=== PATIENT | male | born 1985 | race Caucasian/White ===

== ENCOUNTER 2017-08-31 15:10 | Emergency (ER) | payer OTHER ==
[~2017-08-31] VITALS: Ht 170.2 cm; Wt 70.0 kg
--- NOTE | 2017-08-31 15:24 | PD ---
HPI . Leg injury Chief Complaint: Extremity injury Time Seen by Provider: 15:16 Travel History International Travel<30 days: No Contact w/Intl Traveler<30days: No History of Present Illness HPI Patient presents with a chief complaint of a laceration to his right thigh. He was surfing and was apparently inadvertently cut by the fin of the surfboard. The injury occurred just prior to arrival. He does not recall the date of his last tetanus shot. He states that the bleeding did not appear to be arterial. He rates his pain at 5/10. The wound has been previously addressed. [facility] Social History Tobacco Use: No Allergies-Medications (Allergen,Severity, Reaction): Uncoded Allergies: penicillin (Allergy, Unknown, 08/31/17) Review of Systems Except as stated in HPI: all other systems reviewed are Neg Physical Exam Narrative GENERAL: Awake and alert and in no acute distress. SKIN: Warm and dry. Dressing is in place on the right thigh. His right lower leg is blood stained. HEAD: Normocephalic/atraumatic. EYES: Pupils are equal. Extraocular movements are intact. NECK: Normal range of motion. CARDIOVASCULAR: Regular rate and rhythm. RESPIRATORY: Nonlabored respirations. MUSCULOSKELETAL: Atraumatic. NEUROLOGICAL: Nonfocal. PSYCHIATRIC: Appropriate mood and affect. Data Data Orders Orders Tetanus/Diphtheria Tox Adult (Tetanus/Di (08/31/17 15:30) Lidocaine 1% Inj (Xylocaine 1% Inj) (08/31/17 15:30) Cefazolin 2 Gm Premix (Ancef 2 Gm Premix (08/31/17 17:00) [employer] Request For Service (08/31/17 16:59) Crutches (08/31/17 ) ^ Knee Immobilizer (08/31/17 16:59) Wound Care (08/31/17 16:59) MDM Medical Decision Making Medical Screen Exam Complete: Yes Emergency Medical Condition: Yes Differential Diagnosis Differential diagnosis includes but is not limited to skin laceration, muscular laceration, tendon laceration, neurovascular laceration. Narrative Course This patient presents with a laceration to his right thigh which was sustained on the fin of a surfboard. We will have lidocaine at the bedside along with a staple gun and suturing material before removing the dressing. The laceration was subsequently found to involve the muscle belly. It is 8 cm long. The skin was closed with ish. The patient will be discharged on Keflex. He will be placed in a knee immobilizer and provided with crutches. He has [facility]. I will give him the name of the orthopedic surgeon chief controller center but I have told him that he will probably have to see his primary care provider for referral. Procedures Procedure Narrative LACERATION LOCATION: Right thigh LENGTH: 8 cm NUMBER OF STITCHES/ISH: 11 REPAIR: The area of the laceration was prepped with Betadine and sterilely draped. The laceration was infiltrated with 1% plain lidocaine. The wound was copiously irrigated and explored without evidence of foreign body, tendon injury or neurovascular injury. He does have a horizontal laceration through the belly of a quadriceps muscle. The wound was closed using ish. This was a single layer repair. A sterile dressing was applied. The patient was advised to keep the dressing clean and dry. Patient tolerated the procedure well. Physician Communication Physician Communication Orthopedic PA for Dr. Mills. He recommended closure of the wound. He states that they do not suture muscular lacerations unless they involve the tendon. Diagnosis Primary Impression: Laceration of thigh, right, complicated Qualified Codes: S71.111A - Laceration without foreign body, right thigh, initial encounter Patient Instructions: General Instructions, Laceration (DC) Med/Other Pt SpecificInfo: Prescription(s) given Scripts Hydrocodone-Acetaminophen ([place]) 5 Mg-325 Mg Tab 1 TAB PO Q4H Y for PAIN, #12 TAB 0 Refills Prov: Bere Jason MD 08/31/17 Cephalexin (Keflex) 500 Mg Capsule 500 MG PO Q8H for Infection for 5 Days, #15 CAP 0 Refills Prov: Bere Jason MD 08/31/17 Disposition: DISCHARGE HOME Condition: Stable Bere Jason MD Aug 31, 2017 15:23
[2017-08-31] MEDS ORDERED: LIDOCAINE HCL 1% 20 ML VIAL INFIL ONE (15:30)
[2017-08-31] MEDS ORDERED: TETANUS/DIPHTHERIA TOXOID ADULT 0.5 ML VIAL IM ONE (15:30)
[2017-08-31] MEDS ORDERED: ceFAZolin 2 GM PREMIX 50 ML IV ONE (17:00)
[2017-08-31] MEDS ORDERED: NORC5TAB PO (17:06)
[2017-08-31] MEDS ORDERED: CEPH-460 PO (17:06)
[2017-08-31] MEDS ORDERED: CEPHALEXIN MONOHYDRATE 500 MG CAP PO ONE (18:00)
== END 2017-08-31 18:15 | disposition home or self-care (01) ==
LOC: NEPC 15:10
DX: S71.111A Laceration without foreign body, right thigh, initial encounter (principal); W21.89XA Striking against or struck by other sports equipment, initial encounter; Y93.18 Activity, surfing, windsurfing and boogie boarding; Y92.832 Beach as the place of occurrence of the external cause
CPT/HCPCS: 12004; 90471; 90714; 99284; E0113; L1830; 96372